=== PATIENT | male | born 2000 | race Caucasian/White ===

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

== ENCOUNTER 2021-10-19 11:10 | Emergency (ER) | payer OTHER ==
[~2021-10-19] VITALS: Ht 170.1 cm; Wt 54.4 kg
[~2021-10-19 11:10] MED LIST changes: +PREDNISONE20 M1 PO
[2021-10-19 12:58] LABS: BASO % 0.3 % (0.0-1.0); EOS % 0.2 % (1.0-4.0); HEMATOCRIT 40.6 % (42.0-52.0); LYMPH # 0.5 10*3/uL (1.3-4.4); LYMPH % 7.8 % (27.0-41.0); MEAN CELL VOLUME 92.5 fl (80.0-94.0); MEAN CORPUSCULAR HGB 30.8 pg (27.0-31.0); MEAN CORPUSCULAR HGB CONC 33.3 g/dl (33.0-37.0); MEAN PLATELET VOLUME 9.6 fl (9.6-12.3); MONO # 0.6 10*3/uL (0.1-1.0); MONO % 10.1 % (3.0-9.0); NEUT # 4.7 10*3/uL (2.3-7.9); NEUT % 81.4 % (47.0-73.0); PLATELET COUNT AUTOMATED 188 10*3/uL (130-400); RED BLOOD COUNT 4.39 10*6/uL (4.50-5.90); RED CELL DISTRI WIDTH 12.1 % (0-14.5); WHITE BLOOD COUNT 5.8 10*3/uL (4.8-10.8)
[2021-10-19 13:16] LABS: ALKALINE PHOSPHATASE 73 U/L (45-117); BUN 11 mg/dl (7-24); CHLORIDE 106 mmol/L (98-107); CREATININE 1.02 mg/dL (0.70-1.30); POTASSIUM 3.9 mmol/L (3.5-5.1); SGOT/AST 13 IU/L (3-35); SGPT/ALT 16 U/L (12-78); SODIUM 138 mmol/L (136-145); TOTAL PROTEIN 7.2 gm/dL (6.4-8.2)
[2021-10-19 13:18] LABS: BILIRUBIN Negative (Negative); BLOOD Negative (Negative); CLARITY Clear (Clear); COLOR Yellow (Yellow); GLUCOSE Negative (Negative); KETONE Negative (Negative); LEUKO ESTERASE Negative (Negative); NITRITE Negative (Negative)
[2021-10-19 13:24] LABS: PH 8.5 (4.5-8.0)
[2021-10-19 13:26] LABS: EPITHELIAL CELLS 0-2; MUCOUS 1+; RBC 0-2 rbc/hpf (0-2); URINE AMPHETAMINES < 1000 (1000ng/ml); URINE BARBITURATES < 200 (200ng/ml); URINE BENZODIAZEPINES < 200 (200ng/ml); URINE CANNABINOIDS (THC) > 50 (50ng/ml); URINE COCAINE < 300 (300ng/ml); URINE METHADONE < 300 (300ng/ml); URINE OPIATES < 300 (300ng/ml)
[2021-10-19 13:28] LABS: URINE PHENCYCLIDINE < 25 (25ng/ml)
== END 2021-10-19 17:40 | disposition home or self-care (01) ==
LOC: ED 11:10
PROVIDERS: Nurse Practitioner
DX: B34.9 Viral infection, unspecified (principal); Z20.822 Contact with and (suspected) exposure to COVID-19; Z88.1 Allergy status to other antibiotic agents; Z88.4 Allergy status to anesthetic agent; Z90.89 Acquired absence of other organs

== ENCOUNTER 2021-11-16 13:57 | Emergency (ER) | payer OTHER ==
[~2021-11-16] VITALS: Wt 54.4 kg
[2021-11-16] MEDS ORDERED: VIBRAMYCIN100 MG PO (14:59)
[2021-11-16 15:28] LABS: BILIRUBIN Negative (Negative); BLOOD Negative (Negative); CLARITY Turbid (Clear); COLOR Yellow (Yellow); GLUCOSE Negative (Negative); KETONE Trace (Negative); LEUKO ESTERASE Negative (Negative); NITRITE Negative (Negative); PH 7.5 (4.5-8.0); SPECIFIC GRAVITY 1.025 (1.001-1.030)
[2021-11-16 15:48] LABS: BACTERIA 1+
== END 2021-11-16 15:45 | disposition home or self-care (01) ==
LOC: ED 13:57
PROVIDERS: Physician Assistant
DX: Z20.2 Contact with and (suspected) exposure to infections with a predominantly sexual mode of transmission (principal); Z88.1 Allergy status to other antibiotic agents; Z88.4 Allergy status to anesthetic agent

== ENCOUNTER 2022-01-05 18:42 | Emergency (ER) | payer OTHER ==
[~2022-01-05] VITALS: Wt 59.0 kg
[~2022-01-05 18:42] MED LIST changes: +VIBRAMYCIN100 MG PO
[2022-01-05 20:30] LABS: BASO % 0.7 % (0.0-1.0); EOS # 0.1 10*3/uL (0.0-0.4); EOS % 0.9 % (1.0-4.0); LYMPH # 1.4 10*3/uL (1.3-4.4); LYMPH % 25.8 % (27.0-41.0); MEAN CELL VOLUME 93.5 fl (80.0-94.0); MEAN CORPUSCULAR HGB 30.7 pg (27.0-31.0); MEAN CORPUSCULAR HGB CONC 32.9 g/dl (33.0-37.0); MEAN PLATELET VOLUME 9.9 fl (9.6-12.3); MONO # 0.4 10*3/uL (0.1-1.0); NEUT # 3.6 10*3/uL (2.3-7.9); NEUT % 64.4 % (47.0-73.0); PLATELET COUNT AUTOMATED 224 10*3/uL (130-400); RED BLOOD COUNT 4.49 10*6/uL (4.50-5.90); RED CELL DISTRI WIDTH 12.4 % (0-14.5); WHITE BLOOD COUNT 5.5 10*3/uL (4.8-10.8)
[2022-01-05 20:42] LABS: INTERNATIONAL NORM RATIO 1.1 (2.0-3.5)
[2022-01-05 20:52] LABS: ALKALINE PHOSPHATASE 70 U/L (45-117); BUN 11 mg/dl (7-24); CHLORIDE 109 mmol/L (98-107); CREATININE 0.96 mg/dL (0.70-1.30); POTASSIUM 3.9 mmol/L (3.5-5.1); SGOT/AST 20 IU/L (3-35); SGPT/ALT 15 U/L (12-78); SODIUM 141 mmol/L (136-145); TOTAL PROTEIN 6.6 gm/dL (6.4-8.2)
== END 2022-01-06 00:28 | disposition left against medical advice (07) ==
LOC: ED 18:42
PROVIDERS: Emergency Medicine
DX: R07.9 Chest pain, unspecified (principal)

== ENCOUNTER 2022-02-14 10:47 | Emergency (ER) | payer OTHER ==
[2022-02-14] MEDS ORDERED: PREDNISONE10 MG PO (11:42)
== END 2022-02-14 11:46 | disposition home or self-care (01) ==
LOC: ED 10:47
DX: L23.7 Allergic contact dermatitis due to plants, except food (principal); Z88.1 Allergy status to other antibiotic agents

== ENCOUNTER 2022-04-09 09:07 | Emergency (ER) | payer OTHER ==
[~2022-04-09] VITALS: Ht 170.1 cm; Wt 52.2 kg
[~2022-04-09 09:07] MED LIST changes: +PREDNISONE10 MG PO
== END 2022-04-09 10:11 | disposition home or self-care (01) ==
LOC: ED 09:07
DX: G89.29 Other chronic pain (principal); M54.9 Dorsalgia, unspecified

== ENCOUNTER 2022-05-22 09:23 | Emergency (ER) | payer OTHER ==
[~2022-05-22] VITALS: Ht 167.6 cm; Wt 54.4 kg
[2022-05-22] MEDS ORDERED: MELOXICAM15 MG PO (09:38)
[2022-05-22] MEDS ORDERED: DULOXETINE HCL60 MG PO (09:38)
[2022-05-22] MEDS ORDERED: AUGMENTIN250 MG/5 M PO (11:40)
== END 2022-05-22 12:05 | disposition home or self-care (01) ==
LOC: ED 09:23
DX: S90.31XA Contusion of right foot, initial encounter (principal); S63.8X1A Sprain of other part of right wrist and hand, initial encounter; Z79.899 Other long term (current) drug therapy; Z88.1 Allergy status to other antibiotic agents; Z88.4 Allergy status to anesthetic agent; W22.8XXA Striking against or struck by other objects, initial encounter; Y93.89 Activity, other specified; Y92.89 Other specified places as the place of occurrence of the external cause; Y99.9 Unspecified external cause status

== ENCOUNTER → 2022-07-05 | Outpatient (CLI) | payer OTHER ==
[~2022-07-05] MED LIST changes: +AUGMENTIN250 MG/5 M PO; +DULOXETINE HCL60 MG PO; +MELOXICAM15 MG PO
== END | disposition home or self-care (01) ==
LOC: CARD 07-02 03:42
PROVIDERS: ATTEND Internal Medicine
DX: I49.3 Ventricular premature depolarization (principal); I49.1 Atrial premature depolarization

== ENCOUNTER 2022-07-27 17:16 | Emergency (ER) | payer OTHER ==
[~2022-07-27] VITALS: Ht 167.6 cm; Wt 54.4 kg
[2022-07-27 17:56] LABS: BASO # 0.1 10*3/uL (0.0-0.1); BASO % 0.6 % (0.0-1.0); EOS # 0.1 10*3/uL (0.0-0.4); EOS % 0.6 % (1.0-4.0); HEMATOCRIT 42.3 % (42.0-52.0); LYMPH # 1.6 10*3/uL (1.3-4.4); LYMPH % 17.9 % (27.0-41.0); MEAN CORPUSCULAR HGB 31.2 pg (27.0-31.0); MEAN CORPUSCULAR HGB CONC 33.6 g/dl (33.0-37.0); MEAN PLATELET VOLUME 9.5 fl (9.6-12.3); MONO # 0.6 10*3/uL (0.1-1.0); MONO % 6.4 % (3.0-9.0); NEUT # 6.4 10*3/uL (2.3-7.9); NEUT % 74.3 % (47.0-73.0); PLATELET COUNT AUTOMATED 243 10*3/uL (130-400); RED BLOOD COUNT 4.55 10*6/uL (4.50-5.90); RED CELL DISTRI WIDTH 12.3 % (0-14.5); WHITE BLOOD COUNT 8.7 10*3/uL (4.8-10.8)
[2022-07-27 18:08] LABS: ACT PARTIAL THROMBO TIME 28.3 SECONDS (20.0-32.1); INTERNATIONAL NORM RATIO 1.1 (2.0-3.5)
[2022-07-27 18:12] LABS: ALKALINE PHOSPHATASE 64 U/L (46-116); BUN 18 mg/dl (9-23); CHLORIDE 105 mmol/L (98-107); LIPASE 37 U/L (12-53); POTASSIUM 4.3 mmol/L (3.4-5.1); SGPT/ALT 14 U/L (10-49); TOTAL PROTEIN 6.9 gm/dL (6.0-8.0)
== END 2022-07-27 20:04 | disposition home or self-care (01) ==
LOC: ED 17:16
PROVIDERS: Emergency Medicine
DX: Z00.00 Encounter for general adult medical examination without abnormal findings (principal); R55 Syncope and collapse; R42 Dizziness and giddiness; R07.9 Chest pain, unspecified; M54.2 Cervicalgia; Z88.1 Allergy status to other antibiotic agents; Z88.7 Allergy status to serum and vaccine; Z79.899 Other long term (current) drug therapy

== ENCOUNTER 2022-08-21 03:30 | Emergency (ER) | payer OTHER | END 2022-08-21 04:59 | disposition home or self-care (01) | LOC: ED 03:30 | DX: R00.1 Bradycardia, unspecified (principal); F41.9 Anxiety disorder, unspecified; Z88.1 Allergy status to other antibiotic agents; Z88.8 Allergy status to other drugs, medicaments and biological substances; Z98.890 Other specified postprocedural states ==

== ENCOUNTER 2023-06-18 21:10 | Emergency (ER) | payer OTHER ==
[~2023-06-18] VITALS: Ht 170.1 cm; Wt 59.0 kg
[2023-06-18 22:33] LABS: BASO # 0.1 10*3/uL (0.0-0.1); BASO % 0.8 % (0.0-1.0); EOS # 0.1 10*3/uL (0.0-0.4); EOS % 1.7 % (1.0-4.0); LYMPH # 1.1 10*3/uL (1.3-4.4); LYMPH % 16.9 % (27.0-41.0); MEAN CELL VOLUME 93.2 fl (80.0-94.0); MEAN CORPUSCULAR HGB 31.6 pg (27.0-31.0); MEAN CORPUSCULAR HGB CONC 33.9 g/dl (33.0-37.0); MEAN PLATELET VOLUME 9.6 fl (9.6-12.3); MONO # 0.6 10*3/uL (0.1-1.0); MONO % 9.2 % (3.0-9.0); NEUT # 4.6 10*3/uL (2.3-7.9); NEUT % 71.1 % (47.0-73.0); PLATELET COUNT AUTOMATED 223 10*3/uL (130-400); RED CELL DISTRI WIDTH 12.7 % (0-14.5); WHITE BLOOD COUNT 6.5 10*3/uL (4.8-10.8)
[2023-06-18 22:44] LABS: ACT PARTIAL THROMBO TIME 29.5 SECONDS (20.0-32.1)
[2023-06-18 23:07] LABS: ALKALINE PHOSPHATASE 62 U/L (46-116); BUN 18 mg/dl (9-23); CHLORIDE 108 mmol/L (98-107); LIPASE 47 U/L (12-53); POTASSIUM 3.9 mmol/L (3.4-5.1); SGPT/ALT 11 U/L (5-49); TOTAL PROTEIN 6.8 gm/dL (6.0-8.0)
[2023-06-18 23:23] LABS: ETHYL ALCOHOL < 3.0 mg/dl (<3)
[2023-06-19 00:07] LABS: BILIRUBIN Negative (Negative); BLOOD Negative (Negative); CLARITY Clear (Clear); COLOR Yellow (Yellow); GLUCOSE Negative (Negative); KETONE Negative (Negative); LEUKO ESTERASE Negative (Negative); NITRITE Negative (Negative); PH 7.5 (4.5-8.0); SPECIFIC GRAVITY >= 1.030 (1.001-1.030)
[2023-06-19 00:13] LABS: URINE AMPHETAMINES Negative (1000ng/ml); URINE BARBITURATES Negative (200ng/ml); URINE BENZODIAZEPINES Negative (200ng/ml); URINE CANNABINOIDS (THC) Positive (50ng/ml); URINE COCAINE Negative (300ng/ml); URINE METHADONE Negative (300ng/ml); URINE OPIATES Negative (300ng/ml); URINE PHENCYCLIDINE Negative (25ng/ml)
[2023-06-19 00:33] LABS: RBC 0-2 rbc/hpf (0-2); WBC 0-2 wbc/hpf (0-5)
[2023-06-19] MEDS ORDERED: ONDANSETRON4 MG SL (02:06)
== END 2023-06-19 02:34 | disposition home or self-care (01) ==
LOC: ED 21:10
PROVIDERS: Internal Medicine
DX: K52.9 Noninfective gastroenteritis and colitis, unspecified (principal); R11.2 Nausea with vomiting, unspecified; T45.0X5A Adverse effect of antiallergic and antiemetic drugs, initial encounter; F90.9 Attention-deficit hyperactivity disorder, unspecified type; Z79.899 Other long term (current) drug therapy; Z88.1 Allergy status to other antibiotic agents; Z88.8 Allergy status to other drugs, medicaments and biological substances; Z98.890 Other specified postprocedural states; Z87.891 Personal history of nicotine dependence; Z90.89 Acquired absence of other organs; Y92.89 Other specified places as the place of occurrence of the external cause

== ENCOUNTER 2023-06-21 16:58 | Emergency (ER) | payer OTHER ==
[~2023-06-21 16:58] MED LIST changes: +ONDANSETRON4 MG SL
== END 2023-06-21 17:29 | disposition left against medical advice (07) ==
LOC: ED 16:58
DX: J00 Acute nasopharyngitis [common cold] (principal); Z88.1 Allergy status to other antibiotic agents; Z88.8 Allergy status to other drugs, medicaments and biological substances; Z53.21 Procedure and treatment not carried out due to patient leaving prior to being seen by health care provider

== ENCOUNTER 2023-10-01 03:21 | Emergency (ER) | payer OTHER ==
[~2023-10-01] VITALS: Ht 167.6 cm; Wt 54.4 kg
[2023-10-01 03:52] LABS: URINE AMPHETAMINES Negative (1000ng/ml); URINE BARBITURATES Negative (200ng/ml); URINE BENZODIAZEPINES Negative (200ng/ml); URINE CANNABINOIDS (THC) Positive (50ng/ml); URINE COCAINE Negative (300ng/ml); URINE METHADONE Negative (300ng/ml); URINE OPIATES Negative (300ng/ml); URINE PHENCYCLIDINE Negative (25ng/ml)
[2023-10-01] MEDS ORDERED: LORazepam 2 MG TAB PO ONE (04:05)
== END 2023-10-01 05:46 | disposition home or self-care (01) ==
LOC: ED 03:21
PROVIDERS: Internal Medicine
DX: F12.951 Cannabis use, unspecified with psychotic disorder with hallucinations (principal); F41.9 Anxiety disorder, unspecified; F90.9 Attention-deficit hyperactivity disorder, unspecified type; Z88.1 Allergy status to other antibiotic agents; Z88.8 Allergy status to other drugs, medicaments and biological substances; Z98.890 Other specified postprocedural states; F12.90 Cannabis use, unspecified, uncomplicated; Z79.899 Other long term (current) drug therapy

== ENCOUNTER 2023-10-06 15:49 | Emergency (ER) | payer OTHER ==
[~2023-10-06] VITALS: Ht 170.1 cm; Wt 54.4 kg
[2023-10-06] MEDS ORDERED: Prochlorperazine Maleate 10 MG TAB PO ONE (16:25)
== END 2023-10-06 17:54 | disposition home or self-care (01) ==
LOC: ED 15:49
DX: S09.8XXA Other specified injuries of head, initial encounter (principal); F90.9 Attention-deficit hyperactivity disorder, unspecified type; Z88.1 Allergy status to other antibiotic agents; Z88.8 Allergy status to other drugs, medicaments and biological substances; Z98.890 Other specified postprocedural states; Z90.89 Acquired absence of other organs; W22.8XXA Striking against or struck by other objects, initial encounter; Y93.89 Activity, other specified; Y92.89 Other specified places as the place of occurrence of the external cause; Y99.8 Other external cause status

== ENCOUNTER → 2023-12-12 | Outpatient (CLI) | payer OTHER | END | disposition home or self-care (01) | LOC: RAD 14:30 | PROVIDERS: ATTEND Internal Medicine Nephrology | DX: M25.421 Effusion, right elbow (principal); R60.0 Localized edema; M25.521 Pain in right elbow ==

== ENCOUNTER 2025-02-17 11:22 | Emergency (ER) | payer OTHER ==
[~2025-02-17] VITALS: Ht 170.1 cm; Wt 51.7 kg
[2025-02-17] MEDS ORDERED: Acetaminophen/Oxycodone 5 MG/325 MG TABLET PO ONE (12:00)
[2025-02-17 12:09] LABS: BASO # 0.0 10*3/uL (0.0-0.1); BASO % 0.2 % (0.0-1.0); EOS # 0.0 10*3/uL (0.0-0.4); EOS % 0.4 % (1.0-4.0); MEAN CELL VOLUME 94.6 fl (80.0-94.0); MEAN CORPUSCULAR HGB 30.9 pg (27.0-31.0); MEAN PLATELET VOLUME 9.2 fl (9.6-12.3); MONO # 1.2 10*3/uL (0.1-1.0); MONO % 13.5 % (3.0-9.0); NEUT # 7.1 10*3/uL (2.3-7.9); NEUT % 78.1 % (47.0-73.0); NUCLEATED RED BLOOD CELL 0.0 % (0.0-0.0); NUCLEATED RED BLOOD CELL 0.0 10*3/uL (0.0-0.0); PLATELET COUNT AUTOMATED 195 10*3/uL (130-400); RED CELL DISTRI WIDTH 12.2 % (0-14.5)
[2025-02-17 12:27] LABS: BUN 9 mg/dl (9-23)
[2025-02-17] MEDS ORDERED: VIBRAMYCIN100 MG PO (12:50)
== END 2025-02-17 13:10 | disposition home or self-care (01) ==
LOC: ED 11:22
PROVIDERS: Internal Medicine
DX: N45.1 Epididymitis (principal); N43.3 Hydrocele, unspecified; Z79.899 Other long term (current) drug therapy; Z88.1 Allergy status to other antibiotic agents; Z88.8 Allergy status to other drugs, medicaments and biological substances